=== PATIENT | female | born 1990 | race Caucasian/White ===

== ENCOUNTER 2017-05-05 23:00 | Emergency (ER) | payer MEDICAID, OTHER ==
[~2017-05-05] VITALS: Ht 170.2 cm; Wt 102.5 kg
[~2017-05-05 23:00] MED LIST: CLON-527 PO; CYCL-1 PO; HYDR-3686 PO; ORTHOTRICYCLINE
[2017-05-06] MEDS ORDERED: ibuprofen 200mg tablet PO ONE
[2017-05-06] MEDS ORDERED: IBUP-1985 PO (00:51)
[2017-05-06 00:55] VITALS: BP 120/63
== END 2017-05-06 00:58 | disposition home or self-care (01) ==
LOC: ER 23:00
DX: S61.212A Laceration without foreign body of right middle finger without damage to nail, initial encounter (principal); S60.031A Contusion of right middle finger without damage to nail, initial encounter; F12.10 Cannabis abuse, uncomplicated; F15.10 Other stimulant abuse, uncomplicated; Z98.890 Other specified postprocedural states; Z88.2 Allergy status to sulfonamides; Z79.899 Other long term (current) drug therapy; W23.0XXA Caught, crushed, jammed, or pinched between moving objects, initial encounter; Y93.89 Activity, other specified; Y92.89 Other specified places as the place of occurrence of the external cause; Y99.9 Unspecified external cause status
CPT/HCPCS: 73140; 99284

== ENCOUNTER 2024-12-07 03:18 | Emergency (ER) | payer BC ==
[~2024-12-07] VITALS: Ht 167.6 cm; Wt 76.8 kg
[~2024-12-07 03:18] MED LIST changes: +ALBU6.7H14 INH; +GUAI1TBM19 PO; +IBUP600T52 PO
[2024-12-07 03:30] VITALS: TEMP 99
--- NOTE | 2024-12-07 03:39 | ELECTROCARDIOGRAPH REPORT ---
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
--- NOTE | 2024-12-07 04:16 | RADIOLOGY REPORT ---
CHEST RADIOGRAPH Indication: CP Technique: 1 view Comparison: None FINDINGS: Lines and Tubes: None Lungs: No focal consolidation. Pleura: No effusion or pneumothorax. Cardiomediastinal contours: Unremarkable. Other: No acute osseous abnormality. IMPRESSION: 1. No acute cardiopulmonary abnormality.
[2024-12-07 05:01] LABS: MEAN PLATELET VOLUME 7.0 FL (7.4-10.4); RED CELL DISTRIBUTION WIDTH 13.3 % (11.5-14.5)
--- NOTE | 2024-12-07 05:15 | Physician Documentation ---
History of Present Illness ~ Chief Complaint: Chest Pain Stated Complaint: CHEST PAIN Time Seen by MD: 05:15 Primary Medical Doctor: Caleb harvey HPI 34-year-old female presenting with chest pain and a fever She tells me that she started to feel poorly earlier today. She reports having general malaise and a subjective fever. She then developed some chest discomfort in her right anterior chest. She states it was sharp and very uncomfortable. It was worse with certain positions. No productive cough. No pleuritic chest pain. No right upper quadrant abdominal pain. No vomiting. No dysuria. Here now in the ED she states she is feeling somewhat better. Medication Reconciliation Allergies: Coded Allergies: Sulfa (Sulfonamide Antibiotics) (Verified Allergy, Severe, SWELLING, 01/11/18) Scheduled Albuterol Sulfate (Proventil Hfa), 2 PUFFS INH Q6H Clonazepam* (Klonopin*), 1 MG PO BID, (Reported) Guaifenesin/Dextromethorphan (Mucinex Dm ER 1,200-60 mg Tab), 1 TAB PO Q12H Scheduled PRN Cyclobenzaprine* (Cyclobenzaprine*), 1 TABLET PO Q8H PRN for muscle spasms Hydroxyzine Hcl* (Atarax*), 25 MG PO Q6H PRN Ibuprofen (Ibuprofen), 1 TAB PO Q8H PRN for pain Miscellaneous Medications [Orthotricycline], (Reported) Past Medical History Past Medical History: *ENDOCRINE*, Anxiety, Depression Past Surgical History: Alcohol Use: Sober Drug Use: none Lives with: Family Lives In: Home Review of Systems Constitutional: Reports: fever Cardiovascular: Reports: chest pain Gastrointestinal: Denies: abdominal pain, vomiting Physical Exam Vital Signs: Temperature: 99.0, Source: Oral, Heart Rate: 92, Respiratory Rate: 16, BP: 101/71, Pulse Oximetry: 97, Weight: 76.800 Physical Exam General: This is a nontoxic-appearing young female who is sleeping when I enter the room HEENT: Atraumatic, oropharynx is moist Heart: Regular rate and rhythm at time of my evaluation Lungs: Clear breath sounds bilateral, normal work of breathing, normal oxygen saturation on room air Chest wall: No reproducible tenderness on palpation of the chest wall Abdomen: Soft, nondistended, nontender all quadrants including in the right upper quadrant Extremities: Warm and well-perfused, no edema or posterior calf tenderness Neuro: Alert and oriented, no focal deficits Psychiatric: Calm and cooperative with exam Progress Results/Orders Results/Orders Orders - SEBASTIAN SCHULTE MD Chest,Single View (12/07/24 03:57) Monitor (12/07/24 03:37) Saline Lock (12/07/24 03:37) Oxygen (12/07/24 03:37) Completed Orders - SEBASTIAN SCHULTE MD Chest,Single View (12/07/24 03:57) Cbc/Diff (12/07/24 03:37) BMP (12/07/24 03:37) PBNP (12/07/24 03:37) Electrocardiogram (12/07/24 03:37) Hs Troponin I W Calculations (12/07/24 03:37) Ketorolac Trometh 15mg/Ml Vial (Toradol (12/07/24 05:25) Medications Received in ER Medications (Trade) Dose Ordered Sig/Ree Route PRN Reason Start Time Stop Time Status Last Admin Dose Admin (Toradol injection) 15 mg ONCE ONCE IV 12/07/24 05:25 12/07/24 05:26 DC 12/07/24 05:32 15 MG Vital Signs 12/07/24 12/07/24 12/07/24 12/07/24 03:30 05:30 05:32 06:34 Temp 99.0 Pulse 92 91 91 Resp 16 16 16 16 B/P (MAP) 101/71 100/76 (84) 100/76 Pulse Ox 97 98 98 Laboratory Tests Test 12/07/24 04:30 White Blood Count 6.0 Red Blood Count 4.07 L Hemoglobin 13.0 Hematocrit 38.0 Mean Corpuscular Volume 93.3 Mean Corpuscular Hemoglobin 32.1 H Mean Corpuscular Hemoglobin Concent 34.4 Red Cell Distribution Width 13.3 Platelet Count 179 Mean Platelet Volume 7.0 L Neutrophils (%) (Auto) 84.0 H Lymphocytes (%) (Auto) 10.8 L Monocytes (%) (Auto) 4.3 Eosinophils (%) (Auto) 0.7 Basophils (%) (Auto) 0.2 Neutrophils # (Auto) 5.0 Lymphocytes # (Auto) 0.6 L Monocytes # (Auto) 0.3 Eosinophils # (Auto) 0.0 Basophils # (Auto) 0.0 CBC Comment Sodium Level 136 Potassium Level 3.7 Chloride Level 103 Carbon Dioxide Level 26.3 Anion Gap 7 L Blood Urea Nitrogen 8 Creatinine 0.51 Estimated GFR/1.73 m2 > 90 BUN/Creatinine Ratio 15.7 Glucose Level 111 H Calcium Level 8.6 Troponin I High Sensitivity < 4 L Troponin I High Sens Percent Delta Troponin I Hi Sens Absolute Change Pro-B-Type Natriuretic Peptide 111 Albumin 3.5 Chemistry Comments EKG/XRAY/CT/US/VASC/MRI EKG : Additional Comment I personally interpreted the EKG and this shows: Sinus rhythm, rate 94, QTC 442, T-wave inversions in lead 3, otherwise no acute ischemic changes Heart Score: Heart Score Response (Comments) Value History Slightly Suspicious 0 EKG Repolarization Disturb 1 Age <45 0 Risk Factors No known risk factors 0 Troponin Normal limit 0 Total 1 Medical Decision Making Differential Dx:Considerations: Include: chest wall pain, cholelithiasis, costochondritis, gastritis, pericarditis, pneumothorax Additional Information The patient presents with a subjective fever and malaise with right-sided chest pain. On exam she has no concerning findings. She is afebrile and oxygen saturation is normal. Chest x-ray without acute process. EKG is reassuring. Heart score is 1. Labs are overall unremarkable. She has no right upper quadrant tenderness to suggest gallbladder disease. She is PERC negative, and I doubt PE. She likely is developing a viral syndrome. She will be discharged home with symptomatic treatment and strict return precautions. Departure Time of Disposition: 06:11 Disposition: 01 HOME / SELF CARE / HOMELESS Impression: Primary Impression: Chest pain Condition: Improved Discharge Instructions: Nonspecific Chest Pain, Adult Referrals: NO PRIMARY CARE PROVIDER (PCP) Education Educated: Patient Educated regarding: diagnosis, treatment, need for follow up Signature Scribe Signature: na Attestation: SEBASTIAN Guerrero MD Dec 07, 2024 05:15
[2024-12-07] MEDS: ketorolac trometh 15mg/ml vial 15 MG/ML ML IV ONE (05:32)
[2024-12-07 05:45] LABS: CREATININE 0.51 MG/DL (0.40-0.90); PRO BRAIN NATRIURETIC PEPTIDE 111 PG/ML (0-125); TOTAL CARBON DIOXIDE 26.3 MMOL/L (24-32); eCRCL 143 ML/MIN; eGFR > 90 ML/MIN
[2024-12-07 06:34] VITALS: BP 100/76; PULSE 91; RESP 16; O2SAT 98
== END 2024-12-07 06:36 | disposition home or self-care (01) ==
LOC: ER 03:20
DX: R07.89 Other chest pain (principal); F41.9 Anxiety disorder, unspecified; F32.A Depression, unspecified; Z88.2 Allergy status to sulfonamides; Z79.899 Other long term (current) drug therapy
CPT/HCPCS: 36415; 71045; 80048; 83880; 84484; 85025; 93005; 96374; 99285; J1885